=== PATIENT | female | born 1945 | race Caucasian/White ===

== ENCOUNTER → 2017-04-12 | Outpatient (CLI) | payer OTHER ==
[~2017-04-12] MED LIST: ASPEC81 PO; CALC-20 PO; FLX10 PO; LORA10TA44 PO; MAGNESIUM SUPPLEMENT PO; MTR600 PO; MULT-506 PO; OMEG10007 PO; VITA400C15 PO
--- NOTE | 2017-04-12 15:42 | MAMMOGRAPHY REPORT ---
BILATERAL DIGITAL SCREENING MAMMOGRAM TOMOSYNTHESIS WITH CAD: 04/12/2017 CLINICAL HISTORY: Routine screening. Patient has no complaints. TECHNIQUE: Breast tomosynthesis in addition to standard 2D mammography was performed. Current study was also evaluated with a Computer Aided Detection (CAD) system. COMPARISON: Comparison is made to exams dated: 04/11/2016 mammogram, 04/09/2015 mammogram, 04/03/2014 m ammogram, 03/28/2013 mammogram, 03/22/2012 mammogram, and 03/22/2011 ultrasound - [facility] C enter. BREAST COMPOSITION: There are scattered areas of fibroglandular density in both breasts. FINDINGS: There is a stable grouping of microcavitation indications in the superior posterior left br east on the MLO view, that appears similar dating back to at least 03/13/2008, therefore likely benig n. No suspicious mass, focal area of architectural distortion or cluster of new, suspicious microcal cifications is seen. IMPRESSION: ACR BI-RADS CATEGORY 1: NEGATIVE There is no mammographic evidence of malignancy. A 1 year screening mammogram is recommended. The pa tient will receive written notification of the results. Approximately 10% of breast cancers are not detected with mammography. A negative mammographic report should not delay biopsy if a clinically suggestive mass is present. Riya Hinojosa M.D. ay/:04/12/2017 15:29:32 [employer] Saw[employer]: Angie WHITE)([place]), [facility] letter sent: Normal 1/2 BI-RADS Code: ACR BI-RADS Category 1: Negative
== END | disposition home or self-care (01) ==
LOC: C.MAMM 10:59
PROVIDERS: ATTEND Family Medicine
DX: Z12.31 Encounter for screening mammogram for malignant neoplasm of breast (principal)

== ENCOUNTER → 2018-01-07 | Outpatient (CLI) | payer OTHER ==
[2018-01-07 14:09] LABS: T3 FREE 4.65 pg/ml (2.30-4.20)
[2018-01-12 02:26] LABS: ANA SCREEN TC 249X NEGATIVE (NEGATIVE); ANTI-SS-A <1.0 NEG AI (<1.0 NEG); ANTI-SS-B <1.0 NEG AI (<1.0 NEG); ANTICARDIOLIPID AB IGA <11 APL (< = 11); COMPLEMENT C3 TC 44859W 215 MG/DL (90-180); COMPLEMENT C4 TC 44982E 38 MG/DL (16-47); MICROSOMAL AB <1 IU/ML (<9)
== END | disposition home or self-care (01) ==
LOC: C.LAB1850 12:02
PROVIDERS: ATTEND Internal Medicine Infectious Disease
DX: R50.9 Fever, unspecified (principal)

== ENCOUNTER → 2018-01-08 | Outpatient (CLI) | payer OTHER ==
--- NOTE | 2018-01-08 14:46 | ECHOCARDIOGRAM REPORT ---
*NOTICE TO RECEIVING [employer] This information is strictly Confidential and protected under [place] law. [place] law prohibits you from making any further disclosure of this information unless further disclosure is expressly permitted by the written consent of the person to whom it pertains or is authorized by law. A general authorization for the release of medical or other information is not sufficient for this purpose. Hospital accepts no responsibility if the information is made available to any other person, INCLUDING THE PATIENT. Interpretation Summary * Name: KAREN MONTILLA Study Date: 01/08/2018 12:53 PM BP: 134/68 mmHg * Patient Location: [facility] HR: 107 * : 1945 (M/d/yyyy) Gender: Female Height: 61 in * Age: 72 yrs Ethnicity: [place] Weight: 141 lb * Ordering Physician: Dominga Iyer * Referring Physician: Dominga Iyer * Performed By: Juany Iverson RDCS * * Reason For Study: TACHYCARDIA, FEVERS * BSA: 1.6 m2 * -- Conclusions -- * Sinus tachycardia at 103-107 bpm was present during echocardiogram. * There is mild concentric left ventricular hypertrophy. * No regional wall motion abnormalities noted. * The left ventricle is hyperdynamic. * The left ventricular ejection Fraction = >70 %. * The right ventricle is normal in size and function. * There is no significant valvular heart disease. * There is no evidence of valvular vegetation within the limits of this imaging modality. * If the clinical suspicion for endocarditis remains high, consider cardiology consultation for transesophageal echocardiogram. Procedure Details * A complete two-dimensional transthoracic echocardiogram was performed (2D, M-mode, Doppler and color flow Doppler). Left Ventricle * The left ventricle is normal in size. * There is mild concentric left ventricular hypertrophy. * The left ventricle is hyperdynamic. * Ejection Fraction = >70 %. * The left ventricular wall motion is normal. * No regional wall motion abnormalities noted. Right Ventricle * The right ventricle is normal in size and function. * The right ventricular systolic function is normal as assessed by tricuspid annular plane systolic excursion (TAPSE) (normal >1.5 cm). Atria * The left atrial size is normal. * Right atrial size is normal. * There is no evidence of atrial septal defect, but resolution does not allow assessment for a patent foramen ovale. Mitral Valve * The mitral valve is normal. * There is no mitral valve stenosis. * Significant mitral regurgitation is absent. Tricuspid Valve * The tricuspid valve is normal. * There is no tricuspid stenosis. * Significant tricuspid regurgitation is absent. * Doppler findings do not suggest pulmonary hypertension. Aortic Valve * The aortic valve is trileaflet. * Aortic stenosis is absent. * There is no significant aortic regurgitation. Pulmonic Valve * The pulmonary valve is not well seen, but the Doppler examination is normal without significant regurgitation or stenosis. Great Vessels * The aortic root and proximal ascending aorta are normal sized. Pericardium/Pleural * There is no pericardial effusion. Great Vessels * Normal inferior vena cava diameter and respiratory variation suggests normal central venous pressure. Left Ventricular Diastolic Function * Grade I diastolic dysfunction, (abnormal relaxation pattern). MMode 2D Measurements and Calculations IVSd 1.3 cm IVSs 1.3 cm LVIDd 3.3 cm LVIDs 2.4 cm LVPWd 1.3 cm LVPWs 1.9 cm IVS/LVPW 1.0 FS 26.2 % EDV(Teich) 44.3 ml ESV(Teich) 21.0 ml EF(Teich) 52.6 % EDV(cubed) 36.1 ml ESV(cubed) 14.5 ml EF(cubed) 59.8 % % IVS thick -1.63 % % LVPW thick 49.9 % LV mass(C)d 139.2 grams LV mass(C)dI 85.5 grams/m\S\2 LV mass(C)s 136.6 grams LV mass(C)sI 83.9 grams/m\S\2 SV(Teich) 23.3 ml SI(Teich) 14.3 ml/m\S\2 SV(cubed) 21.6 ml SI(cubed) 13.3 ml/m\S\2 Ao root diam 3.1 cm Ao root area 7.4 cm\S\2 LA dimension 3.4 cm LA/Ao 1.1 LVAd ap4 23.9 cm\S\2 LVLd ap4 7.1 cm EDV(MOD-sp4) 66.5 ml EDV(sp4-el) 68.4 ml LVAs ap4 14.2 cm\S\2 LVLs ap4 5.7 cm ESV(MOD-sp4) 29.5 ml ESV(sp4-el) 30.0 ml EF(MOD-sp4) 55.6 % EF(sp4-el) 56.2 % LVAd ap2 27.3 cm\S\2 LVLd ap2 8.0 cm EDV(MOD-sp2) 76.7 ml EDV(sp2-el) 78.5 ml LVAs ap2 16.3 cm\S\2 LVLs ap2 6.4 cm ESV(MOD-sp2) 34.5 ml ESV(sp2-el) 35.3 ml EF(MOD-sp2) 55.1 % EF(sp2-el) 55.0 % LVLd %diff 11.4 % EDV(MOD-bp) 75.9 ml LVLs %diff 10.7 % ESV(MOD-bp) 33.5 ml EF(MOD-bp) 55.9 % SV(MOD-sp4) 37.0 ml SI(MOD-sp4) 22.7 ml/m\S\2 SV(MOD-sp2) 42.2 ml SI(MOD-sp2) 25.9 ml/m\S\2 SV(MOD-bp) 42.4 ml SI(MOD-bp) 26.0 ml/m\S\2 SV(sp4-el) 38.4 ml SI(sp4-el) 23.6 ml/m\S\2 SV(sp2-el) 43.1 ml SI(sp2-el) 26.5 ml/m\S\2 Doppler Measurements and Calculations MV E max otoniel 83.0 cm/sec MV A max otoniel 94.9 cm/sec MV E/A 0.88 MV dec time 0.14 sec Ao V2 max 129.1 cm/sec Ao max PG 6.7 mmHg Ao max PG (full) 3.1 mmHg LV V1 max PG 3.6 mmHg LV V1 max 94.9 cm/sec
== END | disposition home or self-care (01) ==
LOC: C.CPL 12:48
PROVIDERS: ATTEND Family Medicine
DX: R00.0 Tachycardia, unspecified (principal); R50.9 Fever, unspecified

== ENCOUNTER → 2018-01-29 | Day surgery (SDC) | payer OTHER ==
[2018-01-28 13:10] VITALS: Ht 155.4 cm; Wt 65.9 kg
[~2018-01-29] VITALS: Ht 155.4 cm; Wt 65.9 kg
[~2018-01-29] MED LIST changes: -ASPEC81 PO; +ASPI81TA28 PO; +ATROPINE SULFATE 0.1 MG/ML 5ML SYR IV PRN; +ATV/1 PO; +BACITRACIN OINT 15 GM TUBE ONE; +BUPIVACAINE 0.5 % 5 MG/1 ML MPF 30ML VIAL ONE; +CEFAZOLIN 1000MG IV PUSH 7.5 ML IV SCH; +CHOL1000 PO; +DiphenhydrAMINE HCL 50 MG/ML VIAL ONE; +EpHEDrine SULFATE INJ 50 MG/ML AMP IV PRN; +FENTANYL CITRATE INJ 50 MCG/1 ML 2 ML VIAL IV PRN; +FENTANYL CITRATE INJ 50 MCG/1 ML 2 ML VIAL ONE; -FLX10 PO; +FSMD/70 PO; +KETOROLAC TROMETHAMINE 30 MG/ML VIAL IV. PRN; +LACTATED RINGER'S 1000ML 1,000 ML IV SCH; +LIDOCAINE HCL 2% 2 ML VIAL (20MG/ML) ONE; +LIDOCAINE/EPINEPHRINE 1% 20 ML VIAL ONE; -LORA10TA44 PO; +MAGN1CAP2 PO; -MAGNESIUM SUPPLEMENT PO; +MIDAZOLAM HCL 1 MG/ML 2ML VIAL ONE; +MPRUDL PO; -MTR600 PO; +MoRPHine SULFATE 4 MG/ML 1 ML CARP\\VIAL IV PRN; -OMEG10007 PO; +ONDANSETRON INJ 2 MG/ML 2 ML VIAL IV PRN; +OXYCODONE/ACETAMINOPHEN 5-325 TAB PO PRN; +PRED20TA PO; +PROPOFOL IV EMULSION 10 MG/ML 20 ML VIAL ONE; +SODIUM CHLORIDE 0.9% 1000ML 1,000 ML IV SCH; -VITA400C15 PO
--- NOTE | 2018-01-29 06:59 | History & Physical Bridge - SC ---
H&P Re-Evaluation Bridge Note: I have examined the patient, reviewed the History & Physical and in the interval since the performance of the History & Physical I have noted the following changes of clinical significance: No changes noted
[2018-01-29] MEDS: LIDOCAINE HCL 1% 20 ML VIAL ONE (08:06)
--- NOTE | 2018-01-29 08:10 | [facility] Post Operative Brief Note ---
Immediate Operative Summary Operative Date January 29, 2018. Pre-Operative Diagnosis Headaches Post-Operative Diagnosis Same as pre-op Procedure(s) Performed Bilateral Temporal Artery Biopsies Surgeon Diamond Driller Helper Surgeon(s) None Estimated Blood Loss 2ML Findings Consistent with Post-Op Diagnosis Specimens A.Right temporal artery B.Left temporal artery Drains None Anesthesia Type MAC Complication(s) none Disposition Accompanied Pt To Recovery: no Disposition: Recovery Room / PACU
[2018-01-29 08:15] VITALS: TEMP 36.5
--- NOTE | 2018-01-29 08:20 | Discharge Instructions-SurgCtr ---
Discharge Instructions Date of Service January 29, 2018. Visit Reason for Visit: Headaches Discharge Discharge Diagnosis / Problem: bilateral temporal artery biopsy Discharge Goals Goal(s): Decrease discomfort Medications Stopped Medications Name(s): stopped aspirin since january 21 Activity Recommendations Activity Limitations: resume your previous activity Lifting Limitations: gradually increase as tolerated Exercise/Sports Limitations: as tolerated May Resume Sexual Activity: when tolerated Shower/Bathe: tomorrow Driving or Machine Use: resume 1 day after discharge Anesthesia . Post Anesthesia Instructions: If you have had General Anesthesia or IV Sedation: * Do not drive today. * Resume driving when surgeon permits. * Do not make important decisions or sign legal documents today. * Call surgeon for: 1. Temperature elevations greater than 101 degrees F. 2. Uncontrollable pain. 3. Excessive bleeding. 4. Persistent nausea and vomiting. 5. Medication intolerance (nausea, vomiting or rash). * For nausea and vomiting use only clear liquids such as: tea, soda, bouillon until nausea subsides, then gradually increase diet as tolerated. * If you have any concerns or questions, call your surgeon's office. If physician is unavailable and it is an emergency, call 911 or go to the nearest emergency room. . Instructions / Follow-Up Instructions / Follow-Up He may shower starting tomorrow, no soaking or scrubbing the wound for 2 weeks. Let the soapy water run over the incision and pat it dry. No submerging or soaking the wound. He may apply antibiotic ointment to the incision 2-3 times daily or as needed for the first 2-3 days after surgery. Please call the general surgery clinic at [phone] with any questions or concerns. Follow-up in 1-2 weeks for pathology results and wound checks. You may use acetaminophen and/or ibuprofen as needed for pain or discomfort. Follow the cmv driver's directions. Diet Recommendations Home Diet: no limitations, resume previous diet Procedures Procedures Performed: Bilateral Temporal Artery Biopsies Pending Studies Studies pending at discharge: yes List of pending studies: Pathology results Medical Emergencies . Who to Call and When: Medical Emergencies: If at any time you feel your situation is an emergency, please call 911 immediately. . Non-Emergent Contact Non-Emergency issues call your: Surgeon . . "Provider Documentation" section prepared by Darwin Cabezas. .
--- NOTE | 2018-01-29 08:25 | [facility] Operative Report ---
Operative Report Operative Date January 29, 2018. Pre-Operative Diagnosis Headaches Post-Operative Diagnosis Same as pre-op Procedure(s) Performed Bilateral Temporal Artery Biopsies Surgeon Performing Arts Technicians Surgeon(s) None Estimated Blood Loss 2ML Findings Bilateral temporal arteries identified. Specimens A.Right temporal artery B.Left temporal artery Drains None Anesthesia Type MAC Complication(s) none Disposition no Recovery Room / PACU Indications 72-year-old female with recent history of persistent headaches, vision changes, and fevers. She has had headaches on both sides, rheumatology requesting bilateral temporal artery biopsies. The risks of the procedure were discussed, all questions were answered, and the patient agreed to proceed with surgery as planned. Description of Procedure The patient was properly identified, consented, and taken to the operating room where she was placed in the supine position. Monitored anesthesia care was induced. SCDs and a safety belt were placed. Preoperative antibiotics were administered. The patient's bilateral preauricular and temporal areas of her head were shaved, prepped, and draped in the standard sterile fashion. Surgical timeout was performed and all parties were in agreement that this was the correct patient and procedure to be performed and we continued as planned. We began on the right. Local anesthetic was injected along the skin incision. A oblique incision was made in the hairline overlying the temporal artery as identified by palpation and deepened down through the subcutaneous tissue with electrocautery. The temporal artery was circumferentially dissected. Branches of the artery were ligated with 3-0 silk ties. The temporal artery was clamped both proximally and distally and a 1 cm segment was excised and passed off the table as specimen. The proximal and distal ends were then ligated with 3-0 silk ties. The wound was irrigated and hemostasis was confirmed. The skin was closed with interrupted 3-0 Vicryl deep dermal suture, followed by 4-0 Monocryl running subcuticular suture. Antibiotic ointment was placed over the wound. We then turned our attention to the left side where the procedure was repeated. Local anesthetic was injected along the skin incision. A oblique incision was made in the hairline overlying the temporal artery is identified by palpation and deepened down through the subcutaneous tissue with electrocautery. The temporal artery was circumferentially dissected. Branches of the artery were ligated with 3-0 silk ties. The temporal artery was clamped both proximally and distally and a 1 cm segment was excised and passed off the table as specimen. The proximal and distal ends were then ligated with 3-0 silk ties. The wound was irrigated and hemostasis was confirmed. The skin was closed with interrupted 3-0 Vicryl deep dermal suture, followed by 4-0 Monocryl running subcuticular suture. Antibiotic ointment was placed over the wound. The patient was extubated in the operating room and taken to the PACU where she recovered without apparent incident. All sponge, instrument and needle counts were correct at the conclusion of the procedure. The patient tolerated the procedure well. I attest to the content of the Intraoperative Record and any orders documented therein. Any exceptions are noted below.
[2018-01-29 08:35] VITALS: BP 138/83; PULSE 71; O2SAT 98
--- NOTE | 2018-01-29 08:43 | Anesthesia Progress Nt - [facility] ---
Anesthesia Post Op Note Date & Time January 29, 2018 at 08:43 Vital Signs Pain Intensity: 0 Vital Signs Past 12 Hours Date Time Temp Pulse Resp B/P (MAP) Pulse Ox O2 Delivery O2 Flow Rate FiO2 01/29/18 08:15 36.5 77 12 138/84 (102) 97 Room Air 01/29/18 06:25 37.1 88 16 147/93 (111) 95 Room Air Notes Mental Status: alert / awake / arousable, participated in evaluation Pt Amnestic to Procedure: Yes Nausea / Vomiting: adequately controlled Pain: adequately controlled Airway Patency, RR, SpO2: stable & adequate BP & HR: stable & adequate Hydration State: stable & adequate Anesthetic Complications: no major complications apparent
== END | disposition home or self-care (01) ==
LOC: X.SURG 06:08
PROVIDERS: ATTEND Surgery
DX: R51 Headache (principal); I77.6 Arteritis, unspecified; F41.9 Anxiety disorder, unspecified; Z90.89 Acquired absence of other organs; Z90.710 Acquired absence of both cervix and uterus; Z98.818 Other dental procedure status; Z79.82 Long term (current) use of aspirin; Z79.899 Other long term (current) drug therapy; Z88.2 Allergy status to sulfonamides; Z82.3 Family history of stroke; Z82.49 Family history of ischemic heart disease and other diseases of the circulatory system

== ENCOUNTER → 2018-04-15 | Outpatient (CLI) | payer OTHER ==
[~2018-04-15] MED LIST changes: -ATROPINE SULFATE 0.1 MG/ML 5ML SYR IV PRN; -BACITRACIN OINT 15 GM TUBE ONE; -BUPIVACAINE 0.5 % 5 MG/1 ML MPF 30ML VIAL ONE; -CEFAZOLIN 1000MG IV PUSH 7.5 ML IV SCH; -DiphenhydrAMINE HCL 50 MG/ML VIAL ONE; -EpHEDrine SULFATE INJ 50 MG/ML AMP IV PRN; -FENTANYL CITRATE INJ 50 MCG/1 ML 2 ML VIAL IV PRN; -FENTANYL CITRATE INJ 50 MCG/1 ML 2 ML VIAL ONE; -KETOROLAC TROMETHAMINE 30 MG/ML VIAL IV. PRN; -LACTATED RINGER'S 1000ML 1,000 ML IV SCH; -LIDOCAINE HCL 2% 2 ML VIAL (20MG/ML) ONE; -LIDOCAINE/EPINEPHRINE 1% 20 ML VIAL ONE; -MIDAZOLAM HCL 1 MG/ML 2ML VIAL ONE; -MoRPHine SULFATE 4 MG/ML 1 ML CARP\\VIAL IV PRN; -ONDANSETRON INJ 2 MG/ML 2 ML VIAL IV PRN; -OXYCODONE/ACETAMINOPHEN 5-325 TAB PO PRN; -PROPOFOL IV EMULSION 10 MG/ML 20 ML VIAL ONE; -SODIUM CHLORIDE 0.9% 1000ML 1,000 ML IV SCH
--- NOTE | 2018-04-16 07:32 | MAMMOGRAPHY REPORT ---
BILATERAL DIGITAL SCREENING MAMMOGRAM WITH CAD: 04/15/2018 CLINICAL HISTORY: Routine screening. Patient has no complaints. TECHNIQUE: The study was acquired using full field digital technology and interpreted from soft copy. Current study was also evaluated with a Computer Aided Detection (CAD) system. COMPARISON: Comparison is made to exams dated: 04/12/2017 mammogram, 04/11/2016 mammogram, 04/09/2015 m ammogram, 04/03/2014 mammogram, 03/28/2013 mammogram, and 03/22/2012 mammogram - [facility] nter. BREAST COMPOSITION: There are scattered areas of fibroglandular density in both breasts. FINDINGS: There are a few benign coarse calcifications scattered bilaterally. A stable intramammary lymph node in the upper outer posterior right breast. A grouping of calcifications in the superior, far posterior left breast appears similar dating back to at least 03/13/2008, therefore likely benign. No new suspicious mass, architectural distortion or cluster of microcalcifications is seen. IMPRESSION: ACR BI-RADS CATEGORY 1: NEGATIVE There is no mammographic evidence of malignancy. A 1 year screening mammogram is recommended.( 019) The patient will receive written notification of the results. Some breast cancers are not detected with mammography. A negative mammographic report should not ira y biopsy if a clinically suggestive mass is present. Riya Hinojosa M.D. ay/:04/15/2018 12:45:07 Electrical Fitter: RT Libby(Donna)(M)([place]), [facility] letter sent: Normal 1/2 BI-RADS Code: ACR BI-RADS Category 1: Negative
== END | disposition home or self-care (01) ==
LOC: C.MAMM 11:25
PROVIDERS: ATTEND Family Medicine
DX: Z12.31 Encounter for screening mammogram for malignant neoplasm of breast (principal)